=== PATIENT | male | born 1940 | race Caucasian/White ===

== ENCOUNTER 2024-03-08 11:57 | Inpatient (IN) | payer MEDICARE ==
[~2024-03-08] VITALS: Ht 170.2 cm; Wt 64.4 kg
[2024-03-08] MEDS: IV NS 0.9% 500 ML BAG IV ONE (12:11)
[2024-03-08 12:26] LABS: BASOPHILS % (AUTO) 0.3 % (0.0-2.0); EOSINOPHILS # (AUTO) 0.1 K/uL (0.0-0.7); EOSINOPHILS % (AUTO) 0.9 % (0.0-6.0); HEMATOCRIT 38 % (39-51); HEMOGLOBIN 13.1 g/dL (13.5-17.5); LYMPHOCYTES # (AUTO) 1.1 K/uL (0.8-4.8); MEAN CORPUSCULAR HEMOGLOBIN 32 PG (26.0-33.0); MEAN CORPUSCULAR HGB CONC 34 g/dl (31.0-36.0); MEAN CORPUSCULAR VOLUME 92 fL (80-96); MONOCYTES # (AUTO) 0.8 K/uL (0.1-1.30); MONOCYTES % (AUTO) 9.4 % (2.0-12.0); NEUTROPHILS % (AUTO) 77.4 % (43.0-81.0); PLATELET COUNT (AUTO) 281 K/uL (150-450); RED BLOOD CELL COUNT(AUTO) 4.16 MIL/uL (4.5-6.0)
[2024-03-08 12:32] LABS: CALCIUM, SERUM 9.2 mg/dL (8.5-10.1); CARBON DIOXIDE 33 mmol/L (21-32); CHLORIDE 90 mmol/L (98-107); CREATININE 1.1 mg/dL (0.6-1.3); GLUCOSE 103 mg/dL (74-106); POTASSIUM 4.3 mmol/L (3.5-5.1); SODIUM SERUM 126 mmol/L (136-145); UREA NITROGEN, BLOOD 22 mg/dL (7-18)
[2024-03-08] MEDS ORDERED: SELE5TAB5 PO (12:49)
[2024-03-08] MEDS ORDERED: EZET10TA15 PO (12:49)
[2024-03-08] MEDS ORDERED: CARB1TAB40 PO (12:49)
[2024-03-08] MEDS ORDERED: CARB1TAB24 PO (12:49)
[2024-03-08] MEDS ORDERED: OLME20TA13 PO (12:49)
[2024-03-08] MEDS ORDERED: GABA300C PO (12:49)
[2024-03-08] MEDS ORDERED: TIMO5DRO31 EACHEYE (12:49)
[2024-03-08] MEDS ORDERED: AMLO5TAB4 PO (12:49)
[2024-03-08] MEDS ORDERED: LEVO125T PO (12:49)
[2024-03-08] MEDS ORDERED: MORPHINE SULFATE INJ 2 MG/ML DISP.SYRIN IV PRN (14:00)
[2024-03-08] MEDS ORDERED: ONDANSETRON HCL/PF 4 MG/2 ML VIAL IVP PRN (14:00)
[2024-03-08 14:20] LABS: THYROID STIMULATING HORMONE 0.63 uIU/mL (0.358-3.74)
[2024-03-08 15:00] VITALS: BP 176/73; TEMP 97.7; O2SAT 100
[2024-03-08] MEDS: IV NS 0.9% 1,000 ML IV SCH (15:12)
[2024-03-08] MEDS: hydrALAZINE HCL IV 20 MG VIAL IV PRN (15:14)
[2024-03-08 16:00] VITALS: BP 136/66; TEMP 98.1; O2SAT 98
[2024-03-08] MEDS: CARBIDOPA/LEVODOPA 25/250 MG 1 UDTAB PO SCH (16:05)
[2024-03-08] MEDS: TIMOLOL 0.25% SOL OPHTH 10 ML BOTTLE EACHEYE SCH (16:06)
[2024-03-08 16:30] VITALS: BP 136/66; TEMP 98.1; O2SAT 100
[2024-03-08] MEDS: ACETAMINOPHEN 325 MG TABLET PO PRN (17:11)
[2024-03-08 20:00] VITALS: BP_SYST 109; BP_SYST 119; BP_DIAS 59; BP_DIAS 84; TEMP 97.7; TEMP 98.4; O2SAT 96
[2024-03-09] VITALS (8 sets, daily range): BP systolic 114–175; BP diastolic 54–92; TEMP 97.8–98.9; O2SAT 96–98
[2024-03-09 07:11] LABS: BASOPHILS # (AUTO) 0.1 K/uL (0.0-0.2); BASOPHILS % (AUTO) 0.5 % (0.0-2.0); EOSINOPHILS # (AUTO) 0.1 K/uL (0.0-0.7); EOSINOPHILS % (AUTO) 0.5 % (0.0-6.0); HEMATOCRIT 37 % (39-51); HEMOGLOBIN 12.4 g/dL (13.5-17.5); LYMPHOCYTES # (AUTO) 1.7 K/uL (0.8-4.8); LYMPHOCYTES % (AUTO) 13.9 % (20.0-44.0); MEAN CORPUSCULAR HEMOGLOBIN 31 PG (26.0-33.0); MEAN CORPUSCULAR HGB CONC 34 g/dl (31.0-36.0); MEAN CORPUSCULAR VOLUME 91 fL (80-96); MONOCYTES # (AUTO) 1.2 K/uL (0.1-1.30); MONOCYTES % (AUTO) 10.4 % (2.0-12.0); NEUTROPHILS # (AUTO) 8.9 K/uL (1.8-8.9); NEUTROPHILS % (AUTO) 74.7 % (43.0-81.0); PLATELET COUNT (AUTO) 286 K/uL (150-450); RED BLOOD CELL COUNT(AUTO) 4.04 MIL/uL (4.5-6.0); RED CELL DISTRIBUTION WIDTH 13.6 % (11.5-15.0); WHITE BLOOD COUNT (AUTO) 11.9 K/uL (4.3-11.0)
[2024-03-09] MEDS: LEVOTHYROXINE SODIUM 125 MCG TABLET PO SCH (07:31)
[2024-03-09 07:43] LABS: ALANINE AMINOTRANSFERASE 30 U/L (12-78); ALBUMIN 3.4 g/dL (3.4-5.0); ALKALINE PHOSPHATASE 87 U/L (46-116); ASPARTATE AMINOTRANSFERASE 19 U/L (15-37); CARBON DIOXIDE 25 mmol/L (21-32); CHLORIDE 91 mmol/L (98-107); CREATININE 0.8 mg/dL (0.6-1.3); GLUCOSE 99 mg/dL (74-106); MAGNESIUM 1.9 mg/dL (1.8-2.4); PHOSPHORUS 3.1 mg/dL (2.5-4.9); POTASSIUM 4.3 mmol/L (3.5-5.1); SODIUM SERUM 125 mmol/L (136-145); TOTAL PROTEIN, SERUM 7.1 g/dL (6.4-8.2); UREA NITROGEN, BLOOD 21 mg/dL (7-18)
[2024-03-09] MEDS: SELEGILINE 5 MG PO SCH (09:30)
[2024-03-09] MEDS: EZETIMIBE 10 MG TABLET PO SCH (09:31)
[2024-03-09] MEDS: IV NS 0.9% 1,000 ML IV PRN (13:52)
[2024-03-09] MEDS: BISACODYL (5 MG) 5 MG TABLET.DR PO PRN (14:10)
[2024-03-09] MEDS: GABAPENTIN 300 MG CAPSULE PO SCH (18:03)
[2024-03-09] MEDS: AMLODIPINE BESYLATE 5 MG TABLET PO SCH (18:03)
[2024-03-09] MEDS: CARBIDOPA/LEV CR 50/200 MG 1 UDTAB.SA PO SCH (18:04)
[2024-03-09 21:28] LABS: URINE SODIUM, RANDOM 92 mmol/l (40-220)
[2024-03-10] VITALS (9 sets, daily range): BP systolic 96–160; BP diastolic 54–73; TEMP 97.5–98.6; O2SAT 94–97
[2024-03-10 07:56] LABS: CALCIUM, SERUM 9.2 mg/dL (8.5-10.1); CREATININE 0.7 mg/dL (0.6-1.3); MAGNESIUM 1.7 mg/dL (1.8-2.4); PHOSPHORUS 3.2 mg/dL (2.5-4.9); POTASSIUM 4.3 mmol/L (3.5-5.1)
[2024-03-10 08:19] LABS: THYROID STIMULATING HORMONE 0.56 uIU/mL (0.358-3.74); URIC ACID 3.4 mg/dL (2.6-7.2)
[2024-03-10] MEDS: LOSARTAN POTASSIUM 50 MG TABLET PO SCH (09:05)
[2024-03-10] MEDS: MAGNESIUM OXIDE 400 MG TABLET PO ONE (11:06)
[2024-03-10] MEDS: ATORVASTATIN 10 MG PO SCH (21:06)
[2024-03-10 21:44] LABS: OSMOLALITY,URINE 661 mOS/kg (340-1090)
[2024-03-11 06:39] LABS: BASOPHILS # (AUTO) 0.1 K/uL (0.0-0.2); BASOPHILS % (AUTO) 0.6 % (0.0-2.0); EOSINOPHILS # (AUTO) 0.2 K/uL (0.0-0.7); EOSINOPHILS % (AUTO) 1.6 % (0.0-6.0); HEMATOCRIT 38 % (39-51); HEMOGLOBIN 12.7 g/dL (13.5-17.5); LYMPHOCYTES # (AUTO) 1.6 K/uL (0.8-4.8); LYMPHOCYTES % (AUTO) 16.8 % (20.0-44.0); MEAN CORPUSCULAR HEMOGLOBIN 31 PG (26.0-33.0); MEAN CORPUSCULAR HGB CONC 34 g/dl (31.0-36.0); MEAN CORPUSCULAR VOLUME 92 fL (80-96); MONOCYTES # (AUTO) 1.1 K/uL (0.1-1.30); MONOCYTES % (AUTO) 11.4 % (2.0-12.0); NEUTROPHILS # (AUTO) 6.6 K/uL (1.8-8.9); NEUTROPHILS % (AUTO) 69.6 % (43.0-81.0); PLATELET COUNT (AUTO) 251 K/uL (150-450); RED BLOOD CELL COUNT(AUTO) 4.08 MIL/uL (4.5-6.0); RED CELL DISTRIBUTION WIDTH 13.8 % (11.5-15.0); WHITE BLOOD COUNT (AUTO) 9.5 K/uL (4.3-11.0)
[2024-03-11 07:23] LABS: CALCIUM, SERUM 8.9 mg/dL (8.5-10.1); CREATININE 0.7 mg/dL (0.6-1.3); POTASSIUM 4.3 mmol/L (3.5-5.1)
[2024-03-11 08:00] VITALS: BP 134/67; TEMP 98.6; O2SAT 95
[2024-03-11 08:25] VITALS: BP 135/70
[2024-03-11] MEDS: PREDNISOLONE 1% OP SCH (08:27)
[2024-03-11] MEDS ORDERED: LOSA50TA39 PO (15:15)
[2024-03-11] MEDS ORDERED: ACET325T53 PO (15:15)
[2024-03-12] MEDS ORDERED: LOSARTAN POTASSIUM 50 MG TABLET PO SCH (09:00)
== END 2024-03-11 20:10 | DRG 74 ==
LOC: ER 12:02 → TELE 14:02 → MED 03-10 15:28
PROVIDERS: ADMIT Internal Medicine; ATTEND Nurse Practitioner Acute Care
DX: G90.89 Other disorders of autonomic nervous system (principal); E87.1 Hypo-osmolality and hyponatremia; T50.915A Adverse effect of multiple unspecified drugs, medicaments and biological substances, initial encounter; I49.9 Cardiac arrhythmia, unspecified; E03.9 Hypothyroidism, unspecified; I10 Essential (primary) hypertension; G20.A1 Parkinson's disease without dyskinesia, without mention of fluctuations; I95.9 Hypotension, unspecified; E86.0 Dehydration; E78.5 Hyperlipidemia, unspecified; R26.89 Other abnormalities of gait and mobility; Y92.009 Unspecified place in unspecified non-institutional (private) residence as the place of occurrence of the external cause; D64.9 Anemia, unspecified; Z66 Do not resuscitate
CPT/HCPCS: 36415; 70450-TC; 71045-TC; 80048-TC; 80053-TC; 83735-TC; 83935-TC; 84100-TC; 84300-TC; 84439-TC; 84443-TC; 84481; 84484-TC; 84550-TC; 85025-TC; 93307-TC; 97110-TC; 97112-TC; 97116-TC; 97530-TC; A4223; G0378; J0360; J7030; J7040

== ENCOUNTER 2024-06-01 12:29 | Inpatient (IN) | payer MEDICARE, BC ==
[~2024-06-01] VITALS: Ht 177.8 cm; Wt 64.9 kg
[~2024-06-01 12:29] MED LIST: ACET325T53 PO; CARB1TAB24 PO; EZET10TA15 PO; GABA300C PO; LEVO125T PO; LOSA50TA39 PO; TIMO5DRO31 EACHEYE
[2024-06-01] MEDS ORDERED: ONDANSETRON HCL/PF 4 MG/2 ML VIAL ONE (12:54)
[2024-06-01] MEDS ORDERED: MORPHINE SULFATE INJ 4 MG/ML DISP.SYRIN ONE (12:54)
[2024-06-01] MEDS: ONDANSETRON HCL/PF 4 MG/2 ML VIAL IVP ONE (13:05)
[2024-06-01] MEDS: MORPHINE SULFATE INJ 2 MG/ML DISP.SYRIN IV ONE (13:05)
[2024-06-01 13:36] LABS: CREATININE 0.8 mg/dL (0.6-1.3); POTASSIUM 4.2 mmol/L (3.5-5.1)
[2024-06-01] MEDS ORDERED: PRED5DRO16 LEFTEYE (13:36)
[2024-06-01] MEDS ORDERED: AMLO-212 PO (13:36)
[2024-06-01] MEDS ORDERED: ATOR10TA PO (13:36)
[2024-06-01] MEDS ORDERED: HYDR-4076 PO (13:36)
[2024-06-01] MEDS ORDERED: ALBU8.5H8 IH (13:36)
[2024-06-01] MEDS ORDERED: CARB1TAB40 PO (13:36)
[2024-06-01 13:42] LABS: BASOPHILS % (AUTO) 0.4 % (0.0-2.0); EOSINOPHILS # (AUTO) 0.1 K/uL (0.0-0.7); EOSINOPHILS % (AUTO) 1.1 % (0.0-6.0); HEMATOCRIT 36 % (39-51); HEMOGLOBIN 12.3 g/dL (13.5-17.5); LYMPHOCYTES # (AUTO) 1.4 K/uL (0.8-4.8); LYMPHOCYTES % (AUTO) 14.1 % (20.0-44.0); MEAN CORPUSCULAR HEMOGLOBIN 32 PG (26.0-33.0); MEAN CORPUSCULAR HGB CONC 34 g/dl (31.0-36.0); MEAN CORPUSCULAR VOLUME 93 fL (80-96); MONOCYTES # (AUTO) 1.2 K/uL (0.1-1.30); MONOCYTES % (AUTO) 12.2 % (2.0-12.0); NEUTROPHILS % (AUTO) 72.2 % (43.0-81.0); PLATELET COUNT (AUTO) 241 K/uL (150-450); RED BLOOD CELL COUNT(AUTO) 3.85 MIL/uL (4.5-6.0); RED CELL DISTRIBUTION WIDTH 14.4 % (11.5-15.0); WHITE BLOOD COUNT (AUTO) 9.7 K/uL (4.3-11.0)
[2024-06-01] MEDS: CLONIDINE HCL 0.1 MG TABLET PO PRN (15:40)
[2024-06-01] MEDS ORDERED: ACETAMINOPHEN 325 MG TABLET PO PRN (16:00)
[2024-06-01] MEDS ORDERED: MORPHINE SULFATE INJ 4 MG/ML DISP.SYRIN IV PRN (16:00)
[2024-06-01] MEDS ORDERED: Z GUARD REMEDY 4 OZ OINT TP PRN (16:00)
[2024-06-01] MEDS ORDERED: hydrALAZINE HCL 25 MG TABLET PO PRN (16:00)
[2024-06-01] MEDS ORDERED: MAG HYDROX/AL HYDROX/SIMETH 30 ML UDC PO PRN (16:00)
[2024-06-01] MEDS ORDERED: MAGNESIUM HYDROXIDE 30 ML UDC PO PRN (16:00)
[2024-06-01 16:12] VITALS: BP 202/85; TEMP 98.1; O2SAT 98
[2024-06-01] MEDS: GABAPENTIN 300 MG CAPSULE PO SCH (17:17)
[2024-06-01] MEDS: CARBIDOPA/LEVODOPA 25/250 MG 1 UDTAB PO SCH (17:17)
[2024-06-01 18:14] LABS: INR 1.02 (0.91-1.10); PROTHROMBIN TIME 10.8 SECS (9.2-11.1)
[2024-06-01 20:00] VITALS: BP 114/61; TEMP 97.7; O2SAT 99
[2024-06-01] MEDS: CARBIDOPA/LEV CR 50/200 MG 1 UDTAB.SA PO SCH (22:04)
[2024-06-02] VITALS (11 sets, daily range): BP systolic 131–171; BP diastolic 64–94; TEMP 97.5–101; O2SAT 93–100
[2024-06-02] MEDS: hydrALAZINE HCL IV 20 MG VIAL IV PRN (05:07)
[2024-06-02 06:39] LABS: BASOPHILS % (AUTO) 0.2 % (0.0-2.0); EOSINOPHILS # (AUTO) 0.1 K/uL (0.0-0.7); EOSINOPHILS % (AUTO) 1.2 % (0.0-6.0); HEMATOCRIT 36 % (39-51); HEMOGLOBIN 12.2 g/dL (13.5-17.5); LYMPHOCYTES # (AUTO) 1.5 K/uL (0.8-4.8); LYMPHOCYTES % (AUTO) 15.3 % (20.0-44.0); MEAN CORPUSCULAR HEMOGLOBIN 32 PG (26.0-33.0); MEAN CORPUSCULAR HGB CONC 34 g/dl (31.0-36.0); MEAN CORPUSCULAR VOLUME 93 fL (80-96); MONOCYTES # (AUTO) 1.3 K/uL (0.1-1.30); MONOCYTES % (AUTO) 12.6 % (2.0-12.0); NEUTROPHILS # (AUTO) 7.2 K/uL (1.8-8.9); NEUTROPHILS % (AUTO) 70.7 % (43.0-81.0); PLATELET COUNT (AUTO) 252 K/uL (150-450); RED BLOOD CELL COUNT(AUTO) 3.87 MIL/uL (4.5-6.0); RED CELL DISTRIBUTION WIDTH 14.7 % (11.5-15.0); WHITE BLOOD COUNT (AUTO) 10.1 K/uL (4.3-11.0)
[2024-06-02 06:57] LABS: CALCIUM, SERUM 8.7 mg/dL (8.5-10.1); CREATININE 0.7 mg/dL (0.6-1.3); MAGNESIUM 2.2 mg/dL (1.8-2.4); PHOSPHORUS 3.7 mg/dL (2.5-4.9); POTASSIUM 4.6 mmol/L (3.5-5.1)
[2024-06-02] MEDS: LEVOTHYROXINE SODIUM 125 MCG TABLET PO SCH (07:30)
[2024-06-02] MEDS ORDERED: BUPIVACAINE 0.25% 75 MG/30 ML VIAL ONE (07:49)
[2024-06-02] MEDS: LOSARTAN POTASSIUM 50 MG TABLET PO SCH (09:00)
[2024-06-02] MEDS ORDERED: ROPIVACAINE HCL 0.5% 5 MG/ML 30ML VIAL ONE (09:33)
[2024-06-02] MEDS ORDERED: FENTANYL PF 100MCG/2ML AMPUL ONE (09:33)
[2024-06-02] MEDS ORDERED: LIDOCAINE 2% JEL UROJET 10 ML MM ONE (09:33)
[2024-06-02] MEDS ORDERED: KETAMINE HCL (500MG/10ML) 50 MG/ML VIAL ONE (09:34)
[2024-06-02] MEDS ORDERED: TRANEXAMIC ACID 1,000 MG/10 ML VIAL ONE (09:34)
[2024-06-02] MEDS ORDERED: ROCURONIUM BROMIDE 50 MG/5 ML ONE (09:34)
[2024-06-02] MEDS ORDERED: Magnesium 1 GM/2 ML VIAL ONE (09:42)
[2024-06-02] MEDS ORDERED: KETOROLAC TROMETHAMINE INJ 30 MG/ML VIAL IV PRN (12:30)
[2024-06-02] MEDS ORDERED: LABETALOL HCL IV 100MG VIAL IV PRN (12:30)
[2024-06-02] MEDS: AMLODIPINE BESYLATE 5 MG TABLET PO SCH (13:00)
[2024-06-02 13:04] LABS: HEMOGLOBIN 10.7 g/dL (13.5-17.5)
[2024-06-02] MEDS: CEFAZOLIN 2 GM in IV D5W 100 ML IV SCH (16:49)
[2024-06-02] MEDS: BACLOFEN (10 MG) 10 MG TABLET PO SCH (17:03)
[2024-06-02] MEDS ORDERED: MORPHINE SULFATE INJ 4 MG/ML DISP.SYRIN IV PRN (20:00)
[2024-06-02] MEDS: ACETAMINOPHEN 325 MG TABLET PO PRN (21:03)
[2024-06-02] MEDS: IV NS 0.9% 1,000 ML IV ONE (21:31)
[2024-06-03] VITALS: BP 136/82; TEMP 97.5; O2SAT 97
[2024-06-03 04:00] VITALS: BP 152/79; TEMP 98.1; O2SAT 98
[2024-06-03] MEDS: ONDANSETRON HCL/PF 4 MG/2 ML VIAL IVP PRN (04:41)
[2024-06-03 06:52] LABS: BASOPHILS % (AUTO) 0.1 % (0.0-2.0); EOSINOPHILS % (AUTO) 0.1 % (0.0-6.0); HEMATOCRIT 32 % (39-51); HEMOGLOBIN 10.7 g/dL (13.5-17.5); LYMPHOCYTES # (AUTO) 0.9 K/uL (0.8-4.8); LYMPHOCYTES % (AUTO) 7.8 % (20.0-44.0); MEAN CORPUSCULAR HEMOGLOBIN 31 PG (26.0-33.0); MEAN CORPUSCULAR HGB CONC 33 g/dl (31.0-36.0); MEAN CORPUSCULAR VOLUME 93 fL (80-96); MONOCYTES # (AUTO) 0.8 K/uL (0.1-1.30); MONOCYTES % (AUTO) 7.4 % (2.0-12.0); NEUTROPHILS # (AUTO) 9.5 K/uL (1.8-8.9); NEUTROPHILS % (AUTO) 84.6 % (43.0-81.0); PLATELET COUNT (AUTO) 224 K/uL (150-450); RED BLOOD CELL COUNT(AUTO) 3.44 MIL/uL (4.5-6.0); RED CELL DISTRIBUTION WIDTH 14.4 % (11.5-15.0); WHITE BLOOD COUNT (AUTO) 11.3 K/uL (4.3-11.0)
[2024-06-03 07:00] LABS: CALCIUM, SERUM 8.4 mg/dL (8.5-10.1); CREATININE 0.7 mg/dL (0.6-1.3); MAGNESIUM 2.2 mg/dL (1.8-2.4); PHOSPHORUS 3.6 mg/dL (2.5-4.9); POTASSIUM 3.9 mmol/L (3.5-5.1)
[2024-06-03 07:30] VITALS: BP 134/114; TEMP 98.4; O2SAT 99
[2024-06-03] MEDS: PANTOPRAZOLE 40 MG VIAL IV SCH (08:28)
[2024-06-03] MEDS ORDERED: ONDANSETRON HCL/PF 4 MG/2 ML VIAL IVP PRN (11:30)
[2024-06-03] MEDS: ENOXAPARIN SODIUM 40 MG/0.4 ML DISP.SYRIN SQ SCH (13:06)
[2024-06-03 13:15] VITALS: BP 117/55; TEMP 97.9; O2SAT 100
[2024-06-03 16:21] VITALS: BP 99/55; TEMP 98.1; O2SAT 99
[2024-06-03 20:00] VITALS: BP 99/55; TEMP 97.7; O2SAT 98
[2024-06-04] VITALS (7 sets, daily range): BP systolic 106–146; BP diastolic 52–78; TEMP 98–98.8; O2SAT 95–99
[2024-06-04 06:52] LABS: BASOPHILS % (AUTO) 0.1 % (0.0-2.0); EOSINOPHILS # (AUTO) 0.2 K/uL (0.0-0.7); EOSINOPHILS % (AUTO) 2.2 % (0.0-6.0); HEMATOCRIT 26 % (39-51); HEMOGLOBIN 8.7 g/dL (13.5-17.5); LYMPHOCYTES # (AUTO) 0.6 K/uL (0.8-4.8); MEAN CORPUSCULAR HEMOGLOBIN 31 PG (26.0-33.0); MEAN CORPUSCULAR HGB CONC 34 g/dl (31.0-36.0); MEAN CORPUSCULAR VOLUME 92 fL (80-96); MONOCYTES # (AUTO) 0.7 K/uL (0.1-1.30); MONOCYTES % (AUTO) 9.1 % (2.0-12.0); NEUTROPHILS # (AUTO) 5.9 K/uL (1.8-8.9); NEUTROPHILS % (AUTO) 80.6 % (43.0-81.0); PLATELET COUNT (AUTO) 205 K/uL (150-450); RED BLOOD CELL COUNT(AUTO) 2.78 MIL/uL (4.5-6.0); RED CELL DISTRIBUTION WIDTH 14.2 % (11.5-15.0); WHITE BLOOD COUNT (AUTO) 7.4 K/uL (4.3-11.0)
[2024-06-04 07:08] LABS: CALCIUM, SERUM 7.9 mg/dL (8.5-10.1); CREATININE 0.6 mg/dL (0.6-1.3); POTASSIUM 4.2 mmol/L (3.5-5.1)
[2024-06-04] MEDS ORDERED: ENOX40DI SQ (07:11)
[2024-06-04 07:21] LABS: PHOSPHORUS 2.5 mg/dL (2.5-4.9)
[2024-06-04 07:46] LABS: APPEARANCE,URINE CLEAR (CLEAR); BILIRUBIN,URINE NEGATIVE (NEGATIVE); BLOOD, URINE NEGATIVE Ery/uL (NEGATIVE); COLOR,URINE YELLOW (YELLOW); KETONES,URINE NEGATIVE (NEGATIVE); LEUKOCYTE ESTERASE ,URINE NEGATIVE (NEGATIVE); NITRITE, URINE NEGATIVE (NEGATIVE); PROTEIN,URINE NEGATIVE (NEGATIVE); UGLUCOSE NEGATIVE (NEGATIVE); UROBILINOGEN,URINE 0.2 EU/dL (0.2)
[2024-06-04 08:04] LABS: CREATININE, URINE 104.9 MG/DL (30.0-125.0); URINE TOTAL PROTEIN 24.5 mg/dL (0-11.9)
[2024-06-04 08:19] LABS: THYROID STIMULATING HORMONE 0.44 uIU/mL (0.358-3.74); URIC ACID 5.2 mg/dL (2.6-7.2)
[2024-06-04] MEDS: SODIUM CHLORIDE 1000 MG TABLET PO SCH (10:29)
[2024-06-04 10:48] LABS: EOSINOPHIL,URINE None Seen
[2024-06-05] VITALS (13 sets, daily range): BP systolic 99–152; BP diastolic 50–89; TEMP 97.5–98.8; O2SAT 94–100
[2024-06-05 06:29] LABS: BASOPHILS % (AUTO) 0.1 % (0.0-2.0); EOSINOPHILS # (AUTO) 0.2 K/uL (0.0-0.7); EOSINOPHILS % (AUTO) 2.3 % (0.0-6.0); HEMATOCRIT 28 % (39-51); HEMOGLOBIN 9.5 g/dL (13.5-17.5); LYMPHOCYTES # (AUTO) 0.9 K/uL (0.8-4.8); LYMPHOCYTES % (AUTO) 13.2 % (20.0-44.0); MEAN CORPUSCULAR HEMOGLOBIN 31 PG (26.0-33.0); MEAN CORPUSCULAR HGB CONC 34 g/dl (31.0-36.0); MEAN CORPUSCULAR VOLUME 91 fL (80-96); MONOCYTES # (AUTO) 0.8 K/uL (0.1-1.30); MONOCYTES % (AUTO) 11.8 % (2.0-12.0); NEUTROPHILS # (AUTO) 4.9 K/uL (1.8-8.9); NEUTROPHILS % (AUTO) 72.6 % (43.0-81.0); PLATELET COUNT (AUTO) 229 K/uL (150-450); RED CELL DISTRIBUTION WIDTH 14.2 % (11.5-15.0); WHITE BLOOD COUNT (AUTO) 6.7 K/uL (4.3-11.0)
[2024-06-05 06:45] LABS: ALBUMIN 2.3 g/dL (3.4-5.0); BILIRUBIN,TOTAL 0.8 mg/dL (0.2-1.0); CALCIUM, SERUM 8.4 mg/dL (8.5-10.1); CREATININE 0.8 mg/dL (0.6-1.3); MAGNESIUM 2.2 mg/dL (1.8-2.4); PHOSPHORUS 2.7 mg/dL (2.5-4.9); POTASSIUM 4.2 mmol/L (3.5-5.1); TOTAL PROTEIN, SERUM 6.1 g/dL (6.4-8.2)
[2024-06-05] MEDS ORDERED: SODI100037 PO (10:36)
== END 2024-06-05 20:10 | DRG 481 ==
LOC: ER 12:32 → MED 14:04
PROVIDERS: ADMIT Internal Medicine; ATTEND Internal Medicine
PROC: 0QS604Z Reposition Right Upper Femur with Internal Fixation Device, Open Approach (ICD-10-PCS; principal; 2024-06-02 09:00)
PROC: 30233N1 Transfusion of Nonautologous Red Blood Cells into Peripheral Vein, Percutaneous Approach (ICD-10-PCS; 2024-06-05)
DX: S72.141A Displaced intertrochanteric fracture of right femur, initial encounter for closed fracture (principal); D68.59 Other primary thrombophilia; E87.1 Hypo-osmolality and hyponatremia; S00.83XA Contusion of other part of head, initial encounter; W01.0XXA Fall on same level from slipping, tripping and stumbling without subsequent striking against object, initial encounter; Y92.89 Other specified places as the place of occurrence of the external cause; E03.9 Hypothyroidism, unspecified; G20.A1 Parkinson's disease without dyskinesia, without mention of fluctuations; E78.5 Hyperlipidemia, unspecified; H40.9 Unspecified glaucoma; R26.89 Other abnormalities of gait and mobility; D64.89 Other specified anemias; I95.1 Orthostatic hypotension; G62.9 Polyneuropathy, unspecified; I10 Essential (primary) hypertension; I08.2 Rheumatic disorders of both aortic and tricuspid valves; J84.10 Pulmonary fibrosis, unspecified; M81.0 Age-related osteoporosis without current pathological fracture; E86.9 Volume depletion, unspecified; D64.9 Anemia, unspecified; Z79.890 Hormone replacement therapy; Z79.899 Other long term (current) drug therapy
CPT/HCPCS: 36415; 70450-TC; 71045-TC; 72192-TC; 73502; 73552; 80048-TC; 80053-TC; 82272-TC; 82570-TC; 82962-TC; 83735-TC; 83935-TC; 84100-TC; 84295-TC; 84300-TC; 84443-TC; 84550-TC; 85025-TC; 85027-TC; 85610-TC; 86850-TC; 87081-TC; 93307-TC; 97110-TC; 97116-TC; 97530-TC; 97535-TC; A4223; A4349; G0378; J0360; J0690; J1100; J1650; J2270; J2405; J2470; J2704; J2795; J3010; J3475; J3490; J7030; J7040; J7050; J7060; P9016